=== PATIENT | female | born 1970 | race Caucasian/White ===

== ENCOUNTER 2025-02-28 07:49 | Day surgery (SDC) | payer OTHER ==
[2025-02-26 13:25] VITALS: BP 133/89
[~2025-02-28] VITALS: Ht 160 cm; Wt 67.1 kg
[~2025-02-28 07:49] MED LIST: ANASTROZOLE1 MG PO; BUPROPION HCL100 M1 PO; MACROBID 100 M100 MG PO; ULTRACET PO; ZESTRIL5 MG PO
[2025-02-28] MEDS ORDERED: EPINEPHRINE HCL/PF 1 MG/ML AMPUL IR ONE (17:00)
[2025-02-28] MEDS ORDERED: POVIDONE-IODINE SCRUB 118 ML BOTT TOP ONE (17:00)
[2025-02-28] MEDS ORDERED: GENTAMICIN SULFATE 10 MG/ML (Pediatrico) IV ONE (17:00)
[2025-02-28] MEDS ORDERED: POVIDONE-IODINE 118 ML BOTT TOP ONE (17:00)
[2025-02-28] MEDS ORDERED: CLINDAMYCIN PHOSPHATE 150 MG/ML (900mg) IV ONE (17:00)
[2025-02-28] MEDS ORDERED: CEFAZOLIN SODIUM 1,000 MG VIAL IV ONE (17:00)
[2025-02-28] MEDS ORDERED: MORPHINE SULFATE 4 MG/ML VIAL IV ONE ×2 (20:35→21:05)
== END 2025-02-28 22:30 | disposition home or self-care (01) ==
LOC: CIR.AMB 07:49
PROVIDERS: ATTEND Surgery
DX: C50.411 Malignant neoplasm of upper-outer quadrant of right female breast (principal); N62 Hypertrophy of breast; R59.0 Localized enlarged lymph nodes; N65.1 Disproportion of reconstructed breast; D24.1 Benign neoplasm of right breast